=== PATIENT | male | born 1945 | race Caucasian/White ===

== ENCOUNTER 2020-10-04 22:59 | Emergency (ER) | payer MEDICARE ==
[~2020-10-04] VITALS: Ht 172.7 cm; Wt 90.7 kg
[~2020-10-04 22:59] MED LIST: ADULT LOW DOSE81 MG PO; AMBIEN5 MG PO; ASPIR 8181 MG PO; BACTRIM D.S. TAB1 EA PO; CLONAZEPAM2 MG PO; IMDUR ER TAB 3030 MG PO; LISINOPRIL10 MG PO; LOPRESSOR 25 MG25 MG PO; NEURONTIN600 MG PO; NITROSTAT 0.40.4 MG PO; NITROSTAT0.4 MG SL; PRAVACHOL40 MG PO; PRINIVIL10 MG PO; REQUIP0.5 MG PO
[2020-10-04 23:20] LABS: HEMOGLOBIN 13.6 gm/dl (14.0-17.5); RED BLOOD COUNT 4.47 M/UL (4.20-5.50)
[2020-10-04 23:42] LABS: BUN/CREATININE RATIO 28 (0-10)
[2020-10-05] MEDS ORDERED: SIMVASTATIN10 MG PO (01:08)
[2020-10-05] MEDS ORDERED: LOPRESSOR 25 MG25 MG PO (11:09)
== END 2020-10-05 12:25 | disposition home or self-care (01) ==
LOC: ER1 22:59 → CDU 10-05 00:10 → ER1 10-05 00:10
PROVIDERS: Internal Medicine; Physician Assistant
DX: R07.89 Other chest pain (principal); I25.10 Atherosclerotic heart disease of native coronary artery without angina pectoris; I11.9 Hypertensive heart disease without heart failure; I25.2 Old myocardial infarction; Z95.1 Presence of aortocoronary bypass graft; E78.5 Hyperlipidemia, unspecified; Z20.822 Contact with and (suspected) exposure to COVID-19; Z79.82 Long term (current) use of aspirin; Z79.899 Other long term (current) drug therapy
CPT/HCPCS: 71045; 80053; 80061; 80307; 82550; 82553; 83036; 83735; 83874; 83880; 84100; 84439; 84443; 84484; 85025; 93005; 99285; U0002

== ENCOUNTER 2021-10-02 06:09 | Emergency (ER) | payer MEDICARE ==
[~2021-10-02 06:09] MED LIST changes: +SIMVASTATIN10 MG PO
[2021-10-02 07:40] LABS: HEMOGLOBIN 14.3 gm/dl (14.0-17.5); RED BLOOD COUNT 4.86 M/UL (4.20-5.50); WHITE BLOOD COUNT 7.2 K/UL (4.5-11.0)
[2021-10-02 08:03] LABS: BUN/CREATININE RATIO 36 (0-10)
[2021-10-02] MEDS ORDERED: ASPIRIN 325MG325 MG PO (13:42)
== END 2021-10-02 16:47 ==
LOC: ER1 06:09
PROVIDERS: Emergency Medicine
DX: I66.21 Occlusion and stenosis of right posterior cerebral artery (principal); E78.5 Hyperlipidemia, unspecified; R93.0 Abnormal findings on diagnostic imaging of skull and head, not elsewhere classified; I10 Essential (primary) hypertension; I25.10 Atherosclerotic heart disease of native coronary artery without angina pectoris; Z20.822 Contact with and (suspected) exposure to COVID-19
CPT/HCPCS: 70450; 70496; 70498; 80053; 82550; 82553; 84484; 85025; 93005; 96374; 96375; 99285; J1200; J2060; J2930; Q9967; U0002